=== PATIENT | female | born 1950 | race Caucasian/White ===

== ENCOUNTER 2020-06-15 12:19 | Emergency (ER) | payer MEDICARE ==
[2020-06-15 13:13] LABS: #Eosinphils 0.3 thou/uL (0.0-0.7); #Lymphocytes 2.2 thou/uL (1.20-3.40); #Monocytes 0.5 thou/uL (0.11-0.59); #Neutrophils 4.3 thou/uL (1.40-6.50); %Basophils 0.4 % (0.0-1.0); %Lymphocytes 30.3 % (21.0-51.0); %Monocytes 7.3 % (0.0-10.0); Hemoglobin 11.9 g/dL (12.0-16.0); Mean Corpuscular HGB CONC 33.7 g/dL (32.0-36.0); Mean Corpuscular Hemoglobin 29.3 pg (27.0-31.0); Mean Corpuscular Volume 87.1 fL (78.0-98.0); Mean Platelet Volume 6.6 fL (7.4-10.4); Platelet Count 250 thou/uL (130-400); Red Blood Cell (RBC) Count 4.05 mill/uL (4.20-5.40); White Blood Cell (WBC) Count 7.4 thou/uL (4.8-10.8)
[2020-06-15] MEDS ORDERED: Aspirin Chewable 81 MG TAB ONE (13:17)
[2020-06-15 13:22] LABS: ALT (SGPT) 19 U/L (8-55); AST (SGOT) 21 U/L (5-34); Albumin 3.8 g/dL (3.4-4.8); Alkaline Phosphatase 102 U/L (40-110); Anion Gap 15 mmol/L (10-20); BUN (Urea Nitrogen) 13 mg/dL (9.8-20.1); Bilirubin, Total 0.3 mg/dL (0.2-1.2); Calc. Creatinine Clearance 0 mL/min (70-130); Calcium 9.2 mg/dL (7.8-10.44); Carbon Dioxide 32 mmol/L (23-31); Chloride 89 mmol/L (98-107); Globulin 3.4 g/dL (2.4-3.5); Glucose 199 mg/dL (80-115); Potassium 3.1 mmol/L (3.5-5.1); Protein, Total 7.2 g/dL (5.8-8.1); Sodium 133 mmol/L (136-145)
--- NOTE | 2020-06-15 14:35 | ULT ---
BILATERAL LOWER EXTREMITY VENOUS DUPLEX ULTRASOUND INCLUDING COLOR AND SPECTRAL DOPPLER IMAGING: Date: 06/15/2020 HISTORY: Leg edema. TECHNIQUE: Exam performed from groin to ankle involving both lower extremities, including greater saphenous, com mon femoral, superficial femoral, profunda femoral, popliteal, trifurcation, and posterior tibial vei n regions. FINDINGS: Phasic flow noted at all levels with normal compressibility and normal augmentation. No intraluminal thrombus. IMPRESSION: No evidence for deep venous thrombosis. POS: RRE
[2020-06-15 14:50] LABS: Bilirubin Negative (Negative); Blood, Urine Negative (Negative); Clarity Clear (Clear); Glucose, Urine (Dipstick) Normal (Negative); Ketone, Urine Negative (Negative); Leukocyte Negative Leu/uL (Negative); Nitrite Negative (Negative); Protein, Urine (Dipstick) Negative (Neg-Trace); Specific Gravity, Urine 1.009 (1.002-1.036); Urobilinogen Normal mg/dL (Less than 2)
--- NOTE | 2020-06-15 15:17 | CT ---
EXAM: CT ANGIOGRAM CHEST WITH 3D RENDERIN06/15/20 HISTORY: Dyspnea. Lower leg swelling. FINDINGS: There is an elongated vertically oriented parenchymal density in the right upper lobe measuring appro ximately 3.5 cm in length and 1 x 1.9 cm transversely. This could represent some focal infiltrate or possibly some focal partial atelectasis. There is some scattered linear parenchymal change in the rig ht middle lobe and right lower lobe having more the appearance of some subsegmental atelectasis. No p leural effusion or pericardial effusion. No mediastinal mass or adenopathy. There is no CT evidence f or acute pulmonary embolism. The visualized upper abdomen is unremarkable. IMPRESSION: No CT evidence for acute pulmonary embolism. [place] almost triangular shaped abnormal linear opacity vertically oriented in the right upper lobe. Possibly a focal area of pneumonia or partial atelectasis. Scattered areas of linear subsegmental ate lectasis bilaterally. No pleural effusion or other acute process. Consider short term follow-up imagi ng to document clearing of this parenchymal process in the right upper lobe. POS: RRE
== END 2020-06-15 16:28 | disposition home or self-care (01) ==
LOC: ERS 12:19
DX: R60.0 Localized edema (principal); R06.02 Shortness of breath; E87.6 Hypokalemia; I10 Essential (primary) hypertension; J45.909 Unspecified asthma, uncomplicated; Z79.82 Long term (current) use of aspirin; Z79.899 Other long term (current) drug therapy
CPT/HCPCS: 71275; 80053; 81003; 83605; 84484; 85025; 93005; 93970

== ENCOUNTER 2020-08-09 13:22 | Outpatient (CLI) | payer MEDICARE | END 2020-08-09 13:23 | disposition home or self-care (01) | LOC: BICMAMMO 13:22 | PROVIDERS: ATTEND Family Medicine | DX: Z12.31 Encounter for screening mammogram for malignant neoplasm of breast (principal); Z85.89 Personal history of malignant neoplasm of other organs and systems | CPT/HCPCS: 77063; 77067 ==

== ENCOUNTER 2021-08-01 07:08 | Outpatient (CLI) | payer MEDICARE | END 2021-08-01 07:09 | disposition home or self-care (01) | LOC: NM 07:08 | PROVIDERS: ATTEND Internal Medicine | DX: R11.2 Nausea with vomiting, unspecified (principal) | CPT/HCPCS: 78264; A9541 ==

== ENCOUNTER 2021-10-20 16:05 | Inpatient (IN) | payer MEDICARE ==
[2021-10-20] MEDS ORDERED: Dexamethasone 4 MG TAB ONE (16:22)
[2021-10-20] MEDS ORDERED: Dexamethasone 4 mg/ml Vial ONE (16:23)
[2021-10-20] MEDS ORDERED: Magnesium 2 GM/50 ML BAG (IN WATER) ONE (16:24)
[2021-10-20 17:10] LABS: #Eosinphils 0.2 thou/uL (0.0-0.7); #Lymphocytes 2.2 thou/uL (1.20-3.40); #Monocytes 0.5 thou/uL (0.11-0.59); #Neutrophils 9.5 thou/uL (1.40-6.50); %Basophils 0.3 % (0.0-1.0); %Eosinophils 1.9 % (0.0-10.0); %Lymphocytes 17.6 % (21.0-51.0); %Monocytes 4.3 % (0.0-10.0); Hemoglobin 11.6 g/dL (12.0-16.0); Mean Corpuscular HGB CONC 32.4 g/dL (32.0-36.0); Mean Corpuscular Hemoglobin 30.3 pg (27.0-31.0); Mean Corpuscular Volume 93.4 fL (78.0-98.0); Mean Platelet Volume 6.3 fL (7.4-10.4); Platelet Count 294 thou/uL (130-400); RBC Distribution Width 11.3 % (11.5-14.5); Red Blood Cell (RBC) Count 3.83 mill/uL (4.20-5.40); White Blood Cell (WBC) Count 12.5 thou/uL (4.8-10.8)
[2021-10-20] MEDS ORDERED: Albuterol Sulfate 2.5 mg/0.5 ml Neb ONE (17:14)
[2021-10-20 17:34] LABS: SARS-CoV-2 NAA Rapid Test Not Detected (NotDetected)
[2021-10-20 17:36] LABS: ALT (SGPT) 11 U/L (8-55); AST (SGOT) 16 U/L (5-34); Albumin 3.9 g/dL (3.4-4.8); Alkaline Phosphatase 75 U/L (40-110); Anion Gap 15 mmol/L (10-20); BUN (Urea Nitrogen) 10 mg/dL (9.8-20.1); Bilirubin, Total 0.3 mg/dL (0.2-1.2); CK (CPK) 55 U/L (29-168); Calc. Creatinine Clearance 0 mL/min (70-130); Calcium 8.6 mg/dL (7.8-10.44); Carbon Dioxide 27 mmol/L (23-31); Chloride 96 mmol/L (98-107); Globulin 3.2 g/dL (2.4-3.5); Glucose 143 mg/dL (80-115); Lipase 9 U/L (8-78); Potassium 3.8 mmol/L (3.5-5.1); Protein, Total 7.1 g/dL (5.8-8.1); Sodium 134 mmol/L (136-145)
[2021-10-20 17:36] LABS: Actual Bicarbonate (HCO3a) 30.4 mEq/L (22-28); Analyzer IN Cardio ER; Base Excess (BEa) 4.9 mEq/L (-2.0 to +3.0); Calcium, Ionized (arterial) 1.05 mmol/L (1.12-1.30); Carboxyhemoglobin (COHb) 0.9 gm% (0.0-3.0); Hemoglobin (Hb) 11.8 g/dL (12.0-16.0); O2 Tension (PaO2), arterial 65.7 mmHg (> 80.0); Potassium - ABG Lab 3.46 mmol/L (3.70-5.30); pH, Arterial 7.41 (7.35-7.45)
[2021-10-20 17:37] LABS: Puncture Site RRA
[2021-10-20] MEDS ORDERED: Ondansetron PF 4 MG/2 ML Vial IVP PRN (20:00)
[2021-10-20] MEDS ORDERED: Ondansetron ODT 4 MG TAB SL PRN (20:00)
[2021-10-20] MEDS ORDERED: Sodium Chloride 0.9% 1,000 ML IV SCH ×2 (20:00→20:45)
[2021-10-20] MEDS ORDERED: Dextrose 50% Abboject 50 ML SYRINGE SLOW IVP PRN (20:34)
[2021-10-20] MEDS ORDERED: Guaifenesin DM 100-10/5 ML UDCUP PO PRN (20:34)
[2021-10-20] MEDS ORDERED: Zolpidem Tartrate 5 MG TAB PO PRN (20:34)
[2021-10-20] MEDS ORDERED: Dextrose 5% in Water 1,000 ML IV PRN (20:34)
[2021-10-20] MEDS ORDERED: HumaLOG 300 UNITS/3 ML VIAL SC PRN (20:34)
[2021-10-20] MEDS ORDERED: Morphine 2 MG/ML VIAL SLOW IVP PRN (20:38)
[2021-10-20] MEDS ORDERED: hydrALAZINE 20 MG/ML VIAL SLOW IVP PRN (20:38)
[2021-10-20 21:09] VITALS: BMI 38.7
[2021-10-20] MEDS: HYDROcodone/Acetaminophen 5/325 mg Tablet PO PRN (21:18)
[2021-10-20] MEDS: ALPRAZolam 0.5 MG TAB PO PRN (21:18)
[2021-10-20] MEDS: cefTRIAXone\\ROCEPHIN 1 GM in Sodium Chloride 0.9% 100 ML IVPB SCH (22:04)
[2021-10-21] MEDS: HYDROcodone/Acetaminophen 5/325 mg Tablet PO PRN ×5 (01:18→18:00)
[2021-10-21 04:25] LABS: #Lymphocytes 0.9 thou/uL (1.20-3.40); #Monocytes 0.1 thou/uL (0.11-0.59); #Neutrophils 10.4 thou/uL (1.40-6.50); %Eosinophils 0.1 % (0.0-10.0); %Lymphocytes 7.9 % (21.0-51.0); %Monocytes 0.8 % (0.0-10.0); %Neutrophils 91.2 % (42.0-75.0); Hemoglobin 11.5 g/dL (12.0-16.0); Mean Corpuscular HGB CONC 32.6 g/dL (32.0-36.0); Mean Corpuscular Hemoglobin 30.4 pg (27.0-31.0); Mean Corpuscular Volume 93.2 fL (78.0-98.0); Mean Platelet Volume 6.2 fL (7.4-10.4); Platelet Count 302 thou/uL (130-400); RBC Distribution Width 11.2 % (11.5-14.5); White Blood Cell (WBC) Count 11.4 thou/uL (4.8-10.8)
[2021-10-21 04:49] LABS: ALT (SGPT) 11 U/L (8-55); AST (SGOT) 14 U/L (5-34); Albumin 3.6 g/dL (3.4-4.8); Alkaline Phosphatase 68 U/L (40-110); Anion Gap 14 mmol/L (10-20); BUN (Urea Nitrogen) 11 mg/dL (9.8-20.1); Bilirubin, Total 0.2 mg/dL (0.2-1.2); Calc. Creatinine Clearance 97 mL/min (70-130); Calcium 8.8 mg/dL (7.8-10.44); Carbon Dioxide 27 mmol/L (23-31); Chloride 95 mmol/L (98-107); Globulin 3.7 g/dL (2.4-3.5); Glucose 243 mg/dL (80-115); Magnesium 2.1 mg/dL (1.6-2.6); Potassium 3.6 mmol/L (3.5-5.1); Protein, Total 7.3 g/dL (5.8-8.1); Sodium 132 mmol/L (136-145)
[2021-10-21 04:50] LABS: Troponin I Less than 0.010 ng/mL (< 0.028)
[2021-10-21] MEDS: HumaLOG 300 UNITS/3 ML VIAL SC PRN ×3 (06:40→16:57)
[2021-10-21] MEDS: Mometasone 100 MCG/Formoterol 5 MCG 120 PUFF INHALER INH SCH ×2 (07:01→18:48)
[2021-10-21] MEDS: DULoxetine 60 MG CAP PO SCH (09:34)
[2021-10-21] MEDS: Aspirin 325 MG TAB PO SCH (09:34)
[2021-10-21] MEDS: Enoxaparin Sodium 40 MG/0.4 ML SYRINGE SC SCH (09:34)
[2021-10-21] MEDS: Acetaminophen 325 MG TAB PO PRN (11:10)
[2021-10-21] MEDS ORDERED: Ketorolac Tromethamine 30 MG/ML VIAL IVP PRN (11:48)
[2021-10-21] MEDS ORDERED: predniSONE 20 MG TAB PO SCH (12:00)
[2021-10-21] MEDS ORDERED: cloNIDine 0.1 MG TAB PO PRN (12:58)
[2021-10-21] MEDS: metFORMIN XR 500 MG TAB PO SCH (16:56)
[2021-10-21] MEDS: Gabapentin 300 MG CAP PO SCH ×2 (16:56→20:56)
[2021-10-21] MEDS: Polyethylene Glycol 3350 17 GM Packet PO PRN (18:01)
[2021-10-21] MEDS: ALPRAZolam 0.5 MG TAB PO PRN (18:04)
[2021-10-21] MEDS: Promethazine 25 MG TAB PO PRN (18:04)
[2021-10-21] MEDS: Amlodipine 5 MG TAB PO SCH (20:55)
[2021-10-21] MEDS: cefTRIAXone\\ROCEPHIN 1 GM in Sodium Chloride 0.9% 100 ML IVPB SCH (20:56)
[2021-10-21] MEDS: Azithromycin 250 MG TAB PO SCH (20:56)
[2021-10-21] MEDS: Ondansetron PF 4 MG/2 ML Vial IVP PRN (23:13)
[2021-10-22] MEDS: Acetaminophen 325 MG TAB PO PRN (00:22)
[2021-10-22] MEDS: HYDROcodone/Acetaminophen 5/325 mg Tablet PO PRN ×4 (05:30→21:30)
[2021-10-22] MEDS: HumaLOG 300 UNITS/3 ML VIAL SC PRN ×2 (05:31→11:08)
[2021-10-22] MEDS: Mometasone 100 MCG/Formoterol 5 MCG 120 PUFF INHALER INH SCH ×2 (06:52→20:01)
[2021-10-22] MEDS: Gabapentin 300 MG CAP PO SCH ×3 (08:17→21:30)
[2021-10-22] MEDS: Lisinopril 20 MG TAB PO SCH (08:17)
[2021-10-22] MEDS: DULoxetine 60 MG CAP PO SCH (08:18)
[2021-10-22] MEDS: Amlodipine 5 MG TAB PO SCH ×2 (08:18→21:29)
[2021-10-22] MEDS: Aspirin 325 MG TAB PO SCH (08:18)
[2021-10-22] MEDS: Saccharomyces boulardii 250 MG CAP PO SCH (08:18)
[2021-10-22] MEDS: Enoxaparin Sodium 40 MG/0.4 ML SYRINGE SC SCH (08:18)
[2021-10-22 09:04] LABS: Hemoglobin 11.6 g/dL (12.0-16.0); Mean Corpuscular HGB CONC 31.5 g/dL (32.0-36.0); Mean Corpuscular Hemoglobin 29.3 pg (27.0-31.0); Mean Corpuscular Volume 92.8 fL (78.0-98.0); Mean Platelet Volume 6.8 fL (7.4-10.4); Platelet Count 314 thou/uL (130-400); RBC Distribution Width 11.3 % (11.5-14.5); Red Blood Cell (RBC) Count 3.95 mill/uL (4.20-5.40); White Blood Cell (WBC) Count 22.2 thou/uL (4.8-10.8)
[2021-10-22 09:14] LABS: Anion Gap 14 mmol/L (10-20); BUN (Urea Nitrogen) 10 mg/dL (9.8-20.1); Calc. Creatinine Clearance 110 mL/min (70-130); Calcium 8.7 mg/dL (7.8-10.44); Carbon Dioxide 28 mmol/L (23-31); Chloride 99 mmol/L (98-107); Glucose 152 mg/dL (80-115); Sodium 137 mmol/L (136-145)
[2021-10-22 09:40] LABS: Band 22 % (5-11); Lymphocytes 13 % (21-51); MDiff Complete? YES; Monocytes 5 % (0-10); Neutrophil 59 % (42-75); Platelet Morphology Comment Appears Adequate; RBC Morphology Normal; Reactive Lymphocytes 1 % (0-10)
[2021-10-22] MEDS: metFORMIN XR 500 MG TAB PO SCH (17:09)
[2021-10-22] MEDS: Promethazine 25 MG TAB PO PRN (18:20)
[2021-10-22] MEDS: ALPRAZolam 0.5 MG TAB PO PRN (18:20)
[2021-10-22] MEDS: Polyethylene Glycol 3350 17 GM Packet PO PRN (18:27)
[2021-10-22] MEDS: Ondansetron PF 4 MG/2 ML Vial IVP PRN (19:31)
[2021-10-22] MEDS: Azithromycin 250 MG TAB PO SCH (21:29)
[2021-10-22] MEDS: cefTRIAXone\\ROCEPHIN 1 GM in Sodium Chloride 0.9% 100 ML IVPB SCH (21:30)
[2021-10-23] MEDS: HYDROcodone/Acetaminophen 5/325 mg Tablet PO PRN ×4 (01:47→20:24)
[2021-10-23] MEDS: Mometasone 100 MCG/Formoterol 5 MCG 120 PUFF INHALER INH SCH ×2 (07:42→19:02)
[2021-10-23] MEDS: Aspirin 325 MG TAB PO SCH (08:52)
[2021-10-23] MEDS: Polyethylene Glycol 3350 17 GM Packet PO PRN (08:52)
[2021-10-23] MEDS: Saccharomyces boulardii 250 MG CAP PO SCH (08:52)
[2021-10-23] MEDS: Lisinopril 20 MG TAB PO SCH (08:52)
[2021-10-23] MEDS: Gabapentin 300 MG CAP PO SCH ×3 (08:52→20:30)
[2021-10-23] MEDS: DULoxetine 60 MG CAP PO SCH (08:52)
[2021-10-23] MEDS: Enoxaparin Sodium 40 MG/0.4 ML SYRINGE SC SCH (08:53)
[2021-10-23] MEDS: Amlodipine 5 MG TAB PO SCH ×2 (08:53→20:30)
[2021-10-23 08:54] LABS: #Eosinphils 0.1 thou/uL (0.0-0.7); #Lymphocytes 3.4 thou/uL (1.20-3.40); #Monocytes 1.3 thou/uL (0.11-0.59); #Neutrophils 8.7 thou/uL (1.40-6.50); %Basophils 0.2 % (0.0-1.0); %Eosinophils 1.1 % (0.0-10.0); %Lymphocytes 25.2 % (21.0-51.0); %Monocytes 9.5 % (0.0-10.0); %Neutrophils 63.9 % (42.0-75.0); Hemoglobin 11.8 g/dL (12.0-16.0); Mean Corpuscular HGB CONC 31.6 g/dL (32.0-36.0); Mean Corpuscular Hemoglobin 29.7 pg (27.0-31.0); Mean Corpuscular Volume 94.1 fL (78.0-98.0); Mean Platelet Volume 6.5 fL (7.4-10.4); Platelet Count 323 thou/uL (130-400); RBC Distribution Width 11.3 % (11.5-14.5); Red Blood Cell (RBC) Count 3.97 mill/uL (4.20-5.40); White Blood Cell (WBC) Count 13.5 thou/uL (4.8-10.8)
[2021-10-23 09:00] LABS: Anion Gap 12 mmol/L (10-20); BUN (Urea Nitrogen) 13 mg/dL (9.8-20.1); Calc. Creatinine Clearance 113 mL/min (70-130); Calcium 8.2 mg/dL (7.8-10.44); Carbon Dioxide 27 mmol/L (23-31); Chloride 99 mmol/L (98-107); Glucose 92 mg/dL (80-115); Potassium 3.9 mmol/L (3.5-5.1); Sodium 134 mmol/L (136-145)
[2021-10-23] MEDS ORDERED: Evolocumab [Repatha Sureclick] 140 MG/ML Pen.Injctr SC SCH (16:00)
[2021-10-23] MEDS: Promethazine 25 MG TAB PO PRN (16:22)
[2021-10-23] MEDS: metFORMIN XR 500 MG TAB PO SCH (16:23)
[2021-10-23] MEDS: Azithromycin 250 MG TAB PO SCH (20:30)
[2021-10-23] MEDS: ALPRAZolam 0.5 MG TAB PO PRN (20:31)
[2021-10-23] MEDS: tiZANidine HCl 4 MG TAB PO PRN (20:31)
[2021-10-23] MEDS: cefTRIAXone\\ROCEPHIN 1 GM in Sodium Chloride 0.9% 100 ML IVPB SCH (20:57)
[2021-10-23] MEDS: Docusate 100 MG CAP PO PRN (21:35)
[2021-10-24] MEDS: HYDROcodone/Acetaminophen 5/325 mg Tablet PO PRN ×5 (01:51→20:51)
[2021-10-24 04:39] LABS: #Basophils 0.1 thou/uL (0.0-0.2); #Eosinphils 0.3 thou/uL (0.0-0.7); #Lymphocytes 3.2 thou/uL (1.20-3.40); #Neutrophils 5.7 thou/uL (1.40-6.50); %Basophils 0.7 % (0.0-1.0); %Eosinophils 3.2 % (0.0-10.0); %Lymphocytes 31.2 % (21.0-51.0); %Monocytes 9.8 % (0.0-10.0); %Neutrophils 55.2 % (42.0-75.0); Mean Corpuscular HGB CONC 32.2 g/dL (32.0-36.0); Mean Corpuscular Hemoglobin 30.9 pg (27.0-31.0); Mean Platelet Volume 6.8 fL (7.4-10.4); Platelet Count 227 thou/uL (130-400); RBC Distribution Width 11.5 % (11.5-14.5); Red Blood Cell (RBC) Count 3.57 mill/uL (4.20-5.40); White Blood Cell (WBC) Count 10.3 thou/uL (4.8-10.8)
[2021-10-24 05:07] LABS: Anion Gap 16 mmol/L (10-20); BUN (Urea Nitrogen) 13 mg/dL (9.8-20.1); Calc. Creatinine Clearance 111 mL/min (70-130); Calcium 8.3 mg/dL (7.8-10.44); Carbon Dioxide 21 mmol/L (23-31); Chloride 101 mmol/L (98-107); Glucose 104 mg/dL (80-115); Potassium 4.2 mmol/L (3.5-5.1); Sodium 134 mmol/L (136-145)
[2021-10-24] MEDS: Aspirin 325 MG TAB PO SCH (10:27)
[2021-10-24] MEDS: Docusate 100 MG CAP PO PRN (10:27)
[2021-10-24] MEDS: Gabapentin 300 MG CAP PO SCH ×3 (10:28→20:50)
[2021-10-24] MEDS: Saccharomyces boulardii 250 MG CAP PO SCH (10:28)
[2021-10-24] MEDS: Lisinopril 20 MG TAB PO SCH (10:28)
[2021-10-24] MEDS: Amlodipine 5 MG TAB PO SCH ×2 (10:28→20:50)
[2021-10-24] MEDS: Enoxaparin Sodium 40 MG/0.4 ML SYRINGE SC SCH (10:28)
[2021-10-24] MEDS: DULoxetine 60 MG CAP PO SCH (10:28)
[2021-10-24] MEDS: Mometasone 100 MCG/Formoterol 5 MCG 120 PUFF INHALER INH SCH ×2 (11:30→23:21)
[2021-10-24] MEDS: tiZANidine HCl 4 MG TAB PO PRN (15:43)
[2021-10-24] MEDS: metFORMIN XR 500 MG TAB PO SCH (15:48)
[2021-10-24] MEDS: Promethazine 25 MG TAB PO PRN (15:48)
[2021-10-24] MEDS: Azithromycin 250 MG TAB PO SCH (20:50)
[2021-10-24] MEDS: ALPRAZolam 0.5 MG TAB PO PRN (20:51)
[2021-10-24] MEDS: cefTRIAXone\\ROCEPHIN 1 GM in Sodium Chloride 0.9% 100 ML IVPB SCH (20:52)
[2021-10-25] MEDS: tiZANidine HCl 4 MG TAB PO PRN (00:49)
[2021-10-25] MEDS: HYDROcodone/Acetaminophen 5/325 mg Tablet PO PRN ×4 (00:49→12:09)
[2021-10-25] MEDS: Mometasone 100 MCG/Formoterol 5 MCG 120 PUFF INHALER INH SCH (06:58)
[2021-10-25] MEDS: Gabapentin 300 MG CAP PO SCH (08:15)
[2021-10-25] MEDS: Amlodipine 5 MG TAB PO SCH (08:16)
[2021-10-25] MEDS: DULoxetine 60 MG CAP PO SCH (08:16)
[2021-10-25] MEDS: Enoxaparin Sodium 40 MG/0.4 ML SYRINGE SC SCH (08:16)
[2021-10-25] MEDS: Saccharomyces boulardii 250 MG CAP PO SCH (08:16)
[2021-10-25] MEDS: Aspirin 325 MG TAB PO SCH (08:20)
[2021-10-25] MEDS ORDERED: Buprenorphine [Butrans] 20 MCG Patch.Tdwk TOP SCH (09:00)
[2021-10-25] MEDS: Lisinopril 20 MG TAB PO SCH (09:04)
[2021-10-25 12:11] VITALS: BP 138/72; TEMP 97.7
== END 2021-10-25 14:30 | disposition home health service (06) | DRG 189 ==
LOC: ERS 16:05 → 2NO 18:29 → T4-B 10-24 18:50
PROVIDERS: ADMIT Internal Medicine; ATTEND Internal Medicine
DX: J96.21 Acute and chronic respiratory failure with hypoxia (principal); J44.1 Chronic obstructive pulmonary disease with (acute) exacerbation; Z20.822 Contact with and (suspected) exposure to COVID-19; E11.9 Type 2 diabetes mellitus without complications; E78.5 Hyperlipidemia, unspecified; M79.7 Fibromyalgia; G89.4 Chronic pain syndrome; I10 Essential (primary) hypertension; F41.9 Anxiety disorder, unspecified; F32.A Depression, unspecified; M19.90 Unspecified osteoarthritis, unspecified site; D72.829 Elevated white blood cell count, unspecified; Z88.1 Allergy status to other antibiotic agents; Z88.2 Allergy status to sulfonamides; Z88.8 Allergy status to other drugs, medicaments and biological substances; Z99.81 Dependence on supplemental oxygen; Z85.068 Personal history of other malignant neoplasm of small intestine; Z90.49 Acquired absence of other specified parts of digestive tract; Z98.890 Other specified postprocedural states; Z79.899 Other long term (current) drug therapy; Z79.51 Long term (current) use of inhaled steroids; Z79.82 Long term (current) use of aspirin
CPT/HCPCS: 36415; 36416; 36600; 71045; 71250; 80048; 80053; 82550; 82805; 83605; 83690; 83735; 83880; 84484; 85025; 87040; 93005; 96365; 96367; 96375; J0696; J1100; J1650; J1815; J1956; J2270; J2405; J3475; J3490; J7050; J7512; J7611; J7620; J8540; Q0162; Q0169; U0002

== ENCOUNTER 2021-11-11 15:19 | Observation (INO) | payer MEDICARE ==
[2021-11-11 16:09] LABS: #Eosinphils 0.3 thou/uL (0.0-0.7); #Lymphocytes 2.2 thou/uL (1.20-3.40); #Monocytes 0.7 thou/uL (0.11-0.59); #Neutrophils 5.3 thou/uL (1.40-6.50); %Basophils 0.2 % (0.0-1.0); %Eosinophils 4.1 % (0.0-10.0); %Lymphocytes 25.4 % (21.0-51.0); %Monocytes 8.2 % (0.0-10.0); %Neutrophils 62.2 % (42.0-75.0); Hemoglobin 10.2 g/dL (12.0-16.0); Mean Corpuscular HGB CONC 32.1 g/dL (32.0-36.0); Mean Corpuscular Hemoglobin 29.8 pg (27.0-31.0); Mean Corpuscular Volume 92.8 fL (78.0-98.0); Mean Platelet Volume 6.2 fL (7.4-10.4); Platelet Count 321 thou/uL (130-400); RBC Distribution Width 11.5 % (11.5-14.5); Red Blood Cell (RBC) Count 3.44 mill/uL (4.20-5.40); White Blood Cell (WBC) Count 8.5 thou/uL (4.8-10.8)
[2021-11-11 16:27] LABS: ALT (SGPT) 7 U/L (8-55); AST (SGOT) 13 U/L (5-34); Albumin 3.5 g/dL (3.4-4.8); Alkaline Phosphatase 68 U/L (40-110); Anion Gap 12 mmol/L (10-20); BUN (Urea Nitrogen) 16 mg/dL (9.8-20.1); Bilirubin, Total 0.2 mg/dL (0.2-1.2); Calc. Creatinine Clearance 0 mL/min (70-130); Calcium 8.6 mg/dL (7.8-10.44); Carbon Dioxide 31 mmol/L (23-31); Chloride 97 mmol/L (98-107); Estimated GFR 80; Glucose 125 mg/dL (80-115); Potassium 4.2 mmol/L (3.5-5.1); Protein, Total 6.5 g/dL (5.8-8.1); Sodium 136 mmol/L (136-145)
[2021-11-11 16:52] LABS: Prothrombin Time 12.9 sec (12.0-14.7)
[2021-11-11] MEDS ORDERED: Senokot S 8.6-50 MG TAB PO PRN ×2 (18:18→22:49)
[2021-11-11] MEDS ORDERED: Bisacodyl 5 MG TAB PO PRN ×2 (18:18→22:49)
[2021-11-11] MEDS ORDERED: HumaLOG 300 UNITS/3 ML VIAL SC PRN ×4 (18:18→22:50)
[2021-11-11] MEDS ORDERED: Ondansetron PF 4 MG/2 ML Vial IVP PRN ×2 (18:18→22:49)
[2021-11-11] MEDS ORDERED: Dextrose 5% in Water 1,000 ML IV PRN (18:18)
[2021-11-11] MEDS ORDERED: Dextrose 50% Abboject 50 ML SYRINGE SLOW IVP PRN ×2 (18:18→22:49)
[2021-11-11 19:54] VITALS: BMI 40.1
[2021-11-11] MEDS ORDERED: Pantoprazole 40 MG VIAL IVP SCH (21:00)
[2021-11-11] MEDS: Sodium Chloride 0.9% 1,000 ML IV SCH (21:30)
[2021-11-12] MEDS ORDERED: Ketorolac Tromethamine 30 MG/ML VIAL IVP SCH (06:45)
[2021-11-12] MEDS: Sodium Chloride 0.9% 1,000 ML IV SCH (08:53)
[2021-11-12] MEDS ORDERED: Pantoprazole 40 MG VIAL IVP SCH ×2 (09:00)
[2021-11-12 16:18] VITALS: BP 148/70; TEMP 97.4
== END 2021-11-12 17:20 | disposition home or self-care (01) ==
LOC: ERS 15:19 → 2NO 17:12 → ERS 18:42
PROVIDERS: ADMIT Internal Medicine; ATTEND Internal Medicine
DX: T42.4X1A Poisoning by benzodiazepines, accidental (unintentional), initial encounter (principal); J44.9 Chronic obstructive pulmonary disease, unspecified; E11.9 Type 2 diabetes mellitus without complications; I11.0 Hypertensive heart disease with heart failure; I50.9 Heart failure, unspecified; Z79.82 Long term (current) use of aspirin; Z79.84 Long term (current) use of oral hypoglycemic drugs; Z79.899 Other long term (current) drug therapy; Z88.1 Allergy status to other antibiotic agents; Z88.2 Allergy status to sulfonamides; Z88.5 Allergy status to narcotic agent; Z88.8 Allergy status to other drugs, medicaments and biological substances; Z99.81 Dependence on supplemental oxygen; Z20.822 Contact with and (suspected) exposure to COVID-19
CPT/HCPCS: 80053; 82962 ×2; 85025; 85610; 85730; 93005; 94640; 94760; 96360; 96361; 96374; 96375; 96376; 99285; G0378 ×3; U0003; U0005; 36415; 36416; C9113; J1885; J7050; J7620

== ENCOUNTER 2021-12-05 09:57 | Outpatient (CLI) | payer MEDICARE | END 2021-12-05 09:58 | disposition home or self-care (01) | LOC: BICMAMMO 09:57 | PROVIDERS: ATTEND Family Medicine | DX: Z12.31 Encounter for screening mammogram for malignant neoplasm of breast (principal); Z85.89 Personal history of malignant neoplasm of other organs and systems | CPT/HCPCS: 77063; 77067 ==

== ENCOUNTER 2022-03-18 11:44 | Emergency (ER) | payer MEDICARE ==
[2022-03-18 12:32] LABS: #Eosinphils 0.3 thou/uL (0.0-0.7); #Lymphocytes 2.8 thou/uL (1.20-3.40); #Monocytes 0.9 thou/uL (0.11-0.59); #Neutrophils 7.4 thou/uL (1.40-6.50); %Basophils 0.2 % (0.0-1.0); %Eosinophils 2.5 % (0.0-10.0); %Lymphocytes 24.5 % (21.0-51.0); %Monocytes 7.4 % (0.0-10.0); %Neutrophils 65.2 % (42.0-75.0); Hemoglobin 11.6 g/dL (12.0-16.0); Mean Corpuscular HGB CONC 31.4 g/dL (32.0-36.0); Mean Corpuscular Hemoglobin 28.3 pg (27.0-31.0); Mean Corpuscular Volume 90.1 fl (78.0-98.0); Platelet Count 302 10x3/uL (130-400); RBC Distribution Width 12.2 % (11.5-14.5); Red Blood Cell (RBC) Count 4.08 mill/uL (4.20-5.40); White Blood Cell (WBC) Count 11.4 10x3/uL (4.8-10.8)
[2022-03-18 12:48] LABS: ALT (SGPT) 11 U/L (8-55); AST (SGOT) 16 U/L (5-34); Albumin 3.9 g/dL (3.4-4.8); Alkaline Phosphatase 92 U/L (40-110); Anion Gap 11 mmol/L (10-20); BUN (Urea Nitrogen) 16 mg/dL (9.8-20.1); Bilirubin, Total 0.2 mg/dL (0.2-1.2); Calc. Creatinine Clearance 0 mL/min (70-130); Calcium 8.9 mg/dL (7.8-10.44); Carbon Dioxide 29 mmol/L (23-31); Chloride 100 mmol/L (98-107); Estimated GFR 77; Globulin 3.5 g/dL (2.4-3.5); Glucose 104 mg/dL (80-115); Potassium 4.1 mmol/L (3.5-5.1); Protein, Total 7.4 g/dL (5.8-8.1); Sodium 136 mmol/L (136-145)
== END 2022-03-18 14:54 | disposition home or self-care (01) ==
LOC: ERS 11:44
DX: R07.89 Other chest pain (principal); J44.9 Chronic obstructive pulmonary disease, unspecified; I10 Essential (primary) hypertension; Z79.899 Other long term (current) drug therapy
CPT/HCPCS: 36415; 71045; 80053; 83690; 84484; 85025; 93005

== ENCOUNTER 2022-03-19 15:31 | Outpatient (CLI) | payer MEDICARE | END 2022-03-19 15:32 | disposition home or self-care (01) | LOC: BICMAMMO 15:31 | PROVIDERS: ATTEND Family Medicine | DX: Z13.820 Encounter for screening for osteoporosis (principal) | CPT/HCPCS: 77080 ==

== ENCOUNTER 2023-05-27 16:41 | Emergency (ER) | payer MEDICARE, OTHER ==
[2023-05-27 18:06] LABS: #Eosinphils 0.1 thou/uL (0.0-0.7); #Monocytes 0.9 thou/uL (0.11-0.59); #Neutrophils 4.1 thou/uL (1.40-6.50); %Basophils 0.3 % (0.0-1.0); %Eosinophils 0.9 % (0.0-10.0); %Lymphocytes 25.2 % (21.0-51.0); %Monocytes 13.6 % (0.0-10.0); %Neutrophils 59.7 % (42.0-75.0); Hematocrit 33.3 % (36.0-47.0); Mean Corpuscular Hemoglobin 29.1 pg (27.0-31.0); Mean Corpuscular Volume 88.1 fl (78.0-98.0); Mean Platelet Volume 9.4 fL (7.4-10.4); Platelet Count 226 10x3/uL (130-400); RBC Distribution Width 12.8 % (11.5-14.5); Red Blood Cell (RBC) Count 3.78 mill/uL (4.20-5.40); White Blood Cell (WBC) Count 6.8 10x3/uL (4.8-10.8)
[2023-05-27] MEDS ORDERED: methylPREDNISolone Sod Succ/PF 125 MG/2 ML VIAL ONE (18:08)
[2023-05-27] MEDS ORDERED: Ipratropium/Albuterol 3 ML NEB ONE (18:20)
[2023-05-27 18:34] LABS: Troponin I Less than 0.010 ng/mL (< 0.028)
[2023-05-27 18:35] LABS: ALT (SGPT) 15 U/L (8-55); AST (SGOT) 29 U/L (5-34); Albumin 3.5 g/dL (3.4-4.8); Alkaline Phosphatase 67 U/L (40-110); Anion Gap 15 mmol/L (10-20); BUN (Urea Nitrogen) 14 mg/dL (9.8-20.1); Bilirubin, Total 0.2 mg/dL (0.2-1.2); Calc. Creatinine Clearance 0 mL/min (70-130); Calcium 8.4 mg/dL (7.8-10.44); Carbon Dioxide 24 mmol/L (23-31); Chloride 99 mmol/L (98-107); Estimated GFR 52; Globulin 3.5 g/dL (2.4-3.5); Glucose 126 mg/dL (83-110); Potassium 4.3 mmol/L (3.5-5.1); Sodium 134 mmol/L (136-145)
[2023-05-27 18:57] LABS: SARS-CoV-2 NAA Rapid Test Not Detected (NotDetected)
[2023-05-27 20:13] LABS: Bacteria/HPF None Seen HPF (None Seen); Bilirubin Negative (Negative); Blood, Urine Negative (Negative); CAUTI Indications for Culture Alt mental st,lethar; Clarity Clear (Clear); Glucose, Urine (Dipstick) Normal (Negative); Ketone, Urine Negative (Negative); Leukocyte Negative Leu/uL (Negative); Nitrite Negative (Negative); Protein, Urine (Dipstick) 10 mg/dL (Neg-Trace); RBC/HPF 0-3 HPF (0-3); Specific Gravity, Urine 1.025 (1.002-1.036); Squamous Epithelial 0-3 HPF (0-3); Urobilinogen Normal mg/dL (Less than 2); WBC/HPF 0-3 HPF (0-3); pH, Urine 5.5 (5.0-9.0)
[2023-05-27 20:16] LABS: Urine Culture Reflex No No
== END 2023-05-27 20:40 | disposition home or self-care (01) ==
LOC: ERS 16:41
DX: J44.1 Chronic obstructive pulmonary disease with (acute) exacerbation (principal); J10.1 Influenza due to other identified influenza virus with other respiratory manifestations; R09.02 Hypoxemia; I10 Essential (primary) hypertension; Z79.82 Long term (current) use of aspirin; Z79.899 Other long term (current) drug therapy
CPT/HCPCS: 36415; 71045; 80053; 81001; 83605; 83880; 84484; 85025; 87040; 93005; 94640; 96374; J2930; J7620